=== PATIENT | female | born 1965 | race Caucasian/White ===

== ENCOUNTER 2017-08-11 15:17 | Inpatient (IN) | payer OTHER ==
[~2017-08-11] VITALS: Ht 162.6 cm; Wt 63.9 kg
[2017-08-11 15:46] LABS: HEMATOCRIT 42.7 % (36.0-46.0); HEMOGLOBIN 15.1 G/DL (11.9-15.5); MCH 30.8 PG (29.0-34.0); MCHC 35.4 G/DL (30.0-36.0); MCV 87.1 FL (83-99); PLATELET COUNT 245 K/uL (156-360); RBC DIS.WIDTH-CV 12.9 % (11.8-14.6); RBC DIS.WIDTH-SD 41.1 % (39-53); WHITE BLOOD COUNT 11.9 K/uL (4.1-10.2)
[2017-08-11 15:54] LABS: CHLORIDE 104 mEq/L (99-109); POTASSIUM 3.8 mEq/L (3.7-5.4); SODIUM 137 mEq/L (136-147)
[2017-08-11 15:55] LABS: GLUCOSE 142 mg/dL (70-99)
[2017-08-11 15:59] LABS: CREATININE 0.8 mg/dL (0.6-1.3); GFR ESTIMATE (CALCULATED) > 59 mL/min/
[2017-08-11 16:00] LABS: UREA NITROGEN (BUN) 16 mg/dL (9-23)
[2017-08-11 16:07] LABS: TROP-I INTERPRETATION NEGATIVE; TROPONIN-I 0.13 ng/mL (0.0-0.30)
[2017-08-11 18:06] LABS: TROP-I INTERPRETATION POSITIVE; TROPONIN-I 2.31 ng/mL (0.0-0.30)
[2017-08-11] MEDS ORDERED: VITAMIN D2000 UNI1 PO (18:19)
[2017-08-11] MEDS ORDERED: ASCORBIC ACID100 MG PO (18:19)
[2017-08-11] MEDS ORDERED: CALCIUM500 M4 PO (18:20)
[2017-08-11] MEDS ORDERED: ADVIL200 MG PO (18:21)
[2017-08-11] MEDS ORDERED: MULTI-VITAMIN1 EAC4 PO (18:21)
[2017-08-11] MEDS ORDERED: VITAMIN B122500 MCG PO (18:21)
[2017-08-11] MEDS ORDERED: GLUCOSAMINE1000 MG PO (18:21)
[2017-08-11] MEDS ORDERED: TYLENOL ARTHRI650 MG PO (18:22)
[2017-08-11] MEDS ORDERED: HORMONE MEDICATION (18:22)
[2017-08-11] MEDS ORDERED: HORMONE MEDICATION PO (18:23)
[2017-08-11 18:27] LABS: PTT 27.7 SEC (25-37)
[2017-08-11 23:47] LABS: TROP-I INTERPRETATION POSITIVE
[2017-08-11 23:49] LABS: TROPONIN-I 14.82 ng/mL (0.0-0.30)
[2017-08-12 00:12] LABS: INTER. NORMALIZED RATIO 1.1
[2017-08-12 00:20] LABS: PTT 93.3 SEC (25-37)
[2017-08-12 02:05] LABS: HDL CHOLESTEROL 42 MG/DL (Desirable>=50); LDL CHOLESTEROL 73 mg/dL (Desirable<100); NON-HDL CHOLESTEROL 113 mg/dL (Desirable<160); TOTAL CHOLESTEROL 155 mg/dL (Desirable<200); TRIGLYCERIDES 200 MG/DL (Normal: <150)
[2017-08-12 06:47] LABS: HEMATOCRIT 41.6 % (36.0-46.0); HEMOGLOBIN 14.7 G/DL (11.9-15.5); MCH 31.3 PG (29.0-34.0); MCHC 35.3 G/DL (30.0-36.0); MCV 88.7 FL (83-99); PLATELET COUNT 225 K/uL (156-360); RBC DIS.WIDTH-CV 13.1 % (11.8-14.6); RBC DIS.WIDTH-SD 42.5 % (39-53); RED BLOOD COUNT 4.69 M/uL (3.80-5.20); WHITE BLOOD COUNT 9.6 K/uL (4.1-10.2)
[2017-08-12 07:12] LABS: TROP-I INTERPRETATION POSITIVE; TROPONIN-I 6.07 ng/mL (0.0-0.30)
[2017-08-12 07:30] LABS: CHLORIDE 111 MEQ/L (99-109); CREATININE 0.7 MG/DL (0.6-1.3); GFR ESTIMATE (CALCULATED) > 59 mL/min/; GLUCOSE 112 mg/dL (70-99); POTASSIUM 4.4 MEQ/L (3.7-5.4); SODIUM 140 MEQ/L (136-147); UREA NITROGEN (BUN) 17 mg/dL (9-23)
[2017-08-12 12:40] VITALS: BP 140/67
[2017-08-12] MEDS ORDERED: MEDROXYPROGEST2.5 MG PO (12:44)
[2017-08-12] MEDS ORDERED: ESTRACE0.5 MG PO (12:45)
[2017-08-12 14:36] VITALS: BP 101/61
[2017-08-12 19:40] VITALS: BP 119/64
[2017-08-12 23:27] VITALS: BP 136/64
[2017-08-13 03:35] VITALS: BP 104/58
[2017-08-13 04:10] LABS: HEMATOCRIT 40.9 % (36.0-46.0); HEMOGLOBIN 14.2 G/DL (11.9-15.5); MCHC 34.7 G/DL (30.0-36.0); MCV 89.3 FL (83-99); PLATELET COUNT 217 K/uL (156-360); RBC DIS.WIDTH-CV 13.2 % (11.8-14.6); RBC DIS.WIDTH-SD 43.1 % (39-53); RED BLOOD COUNT 4.58 M/uL (3.80-5.20); WHITE BLOOD COUNT 9.5 K/uL (4.1-10.2)
[2017-08-13 07:05] VITALS: BP 117/69
[2017-08-13 09:48] LABS: HEMOGLOBIN A1c (GLYCOHEMOGLOB) 5.4 % (Below 5.7)
[2017-08-13 14:50] VITALS: BP 137/63
[2017-08-13 19:45] VITALS: BP 100/66
[2017-08-14 00:20] VITALS: BP 133/80
[2017-08-14 05:11] VITALS: BP 100/55
[2017-08-14 06:41] LABS: PTT 26.3 SEC (25-37)
[2017-08-14 07:02] VITALS: BP 112/64
[2017-08-14 11:08] VITALS: BP 135/79
[2017-08-14] MEDS ORDERED: ATORVASTATIN CA20 MG PO (12:00)
[2017-08-14] MEDS ORDERED: METOPROLOL SUCC25 MG PO (12:00)
[2017-08-14] MEDS ORDERED: ASPIR-LOW81 MG PO (12:00)
[2017-08-14] MEDS ORDERED: LISINOPRIL2.5 MG PO (12:00)
[2017-08-14] MEDS ORDERED: CLOPIDOGREL75 MG PO (12:00)
== END 2017-08-14 13:17 | disposition home or self-care (01) | DRG 282 ==
LOC: EME 15:17 → EDOF 19:49 → 4EAST 19:49 → ENRESERV 19:52 → 4EAST 08-12 12:21
PROVIDERS: Emergency Medicine; Hospitalist; Internal Medicine
DX: I21.4 Non-ST elevation (NSTEMI) myocardial infarction (principal); I25.10 Atherosclerotic heart disease of native coronary artery without angina pectoris; I10 Essential (primary) hypertension; E78.1 Pure hyperglyceridemia; M16.0 Bilateral primary osteoarthritis of hip; I49.3 Ventricular premature depolarization; F17.200 Nicotine dependence, unspecified, uncomplicated; Z79.82 Long term (current) use of aspirin
CPT/HCPCS: 71046; 80048; 80061; 83036; 84484; 85027; 85347; 85610; 85730; 93005; 93306; 99281; 99285; C1769; C1887; J1644; J2060; J2250; J3010; J7040